=== PATIENT | female | born 1970 | race Two or more races ===

== ENCOUNTER 2018-06-29 09:00 | Day surgery (SDC) | payer OTHER ==
[2018-06-29 09:45] VITALS: BMI 31.1
[2018-06-29 10:29] VITALS: TEMP 98.5
[2018-06-29] MEDS ORDERED: ACETAMINOPHEN 500 MG TABLET (FP) ONE (10:54)
[2018-06-29 11:21] VITALS: BP 109/78; PULSE 74
--- NOTE | 2018-06-30 17:54 | PATH ---
Surgical Pathology Report Patient Name: ALAINA CUADRA [facility]. Rec. #: [id number] /Age/Gender: 1970 (Age: 47) / F Account: [id number] Location: U-ENDOSCOPY Taken: 06/29/2018 Received: 06/29/2018 Reported: 06/30/2018 Physicians: Jake Norris D.O. Specimen(s) Received BODY Clinical History Anemia Postoperative diagnosis: Gastritis Final Diagnosis STOMACH, BODY/ANGULARIS, BIOPSY: GASTRIC BODY MUCOSA WITH MILD CHRONIC GASTRITIS. IMMUNOHISTOCHEMICAL STAIN FOR H. PYLORI IS NEGATIVE. Electronically Signed Veena Mensah M.D. Gross Description Received in formalin, labeled "biopsy body/angularis" are 3 hughes, irregular portions of soft tissue ranging from 0.1-0.5 cm. in greatest dimension. The specimens are submitted in toto in one cassette. /06/29/2018 saudi06/29/2018
== END 2018-06-29 11:24 | disposition home or self-care (01) ==
LOC: JASU-ENDO 09:00
PROVIDERS: ATTEND Internal Medicine Gastroenterology
PROC: 0DB68ZX Excision of Stomach, Via Natural or Artificial Opening Endoscopic, Diagnostic (ICD-10-PCS; principal; 2018-06-29 09:45)
DX: D50.9 Iron deficiency anemia, unspecified (principal); K29.50 Unspecified chronic gastritis without bleeding; I10 Essential (primary) hypertension; K44.9 Diaphragmatic hernia without obstruction or gangrene
CPT/HCPCS: 84703; 88305-TC; 88342-TC

== ENCOUNTER 2018-07-13 10:43 | Day surgery (SDC) | payer OTHER ==
[2018-07-13 11:12] VITALS: BMI 32.5
[2018-07-13 12:22] VITALS: TEMP 97.5
[2018-07-13 13:22] VITALS: BP 132/79; PULSE 65
== END 2018-07-13 13:22 | disposition home or self-care (01) ==
LOC: JASU-ENDO 10:43
PROVIDERS: ATTEND Internal Medicine Gastroenterology
PROC: 0DJD8ZZ Inspection of Lower Intestinal Tract, Via Natural or Artificial Opening Endoscopic (ICD-10-PCS; principal; 2018-07-13 10:45)
DX: Z12.11 Encounter for screening for malignant neoplasm of colon (principal); K64.8 Other hemorrhoids; Z86.010 Personal history of colon polyps
CPT/HCPCS: 84703

== ENCOUNTER 2021-08-22 04:34 | Day surgery (SDC) | payer OTHER ==
[2021-08-21 14:17] VITALS: BMI 26.4
[2021-08-22 09:26] VITALS: TEMP 98
[2021-08-22 11:33] VITALS: PULSE 62
[2021-08-22 12:02] VITALS: BP 136/84
== END 2021-08-22 12:00 | disposition home or self-care (01) ==
LOC: JASU-ENDO 04:34
PROVIDERS: ATTEND Internal Medicine Gastroenterology
PROC: 0DB68ZX Excision of Stomach, Via Natural or Artificial Opening Endoscopic, Diagnostic (ICD-10-PCS; 2021-08-22)
PROC: 0DB28ZX Excision of Middle Esophagus, Via Natural or Artificial Opening Endoscopic, Diagnostic (ICD-10-PCS; 2021-08-22)
PROC: 0DB38ZX Excision of Lower Esophagus, Via Natural or Artificial Opening Endoscopic, Diagnostic (ICD-10-PCS; principal; 2021-08-22 10:00)
DX: K29.50 Unspecified chronic gastritis without bleeding (principal)
CPT/HCPCS: 81025; 88305-TC; 88342-TC

== ENCOUNTER 2021-09-19 13:50 | Emergency (ER) | payer OTHER ==
[2021-09-19 14:15] VITALS: BP 142/89; PULSE 73; TEMP 98.2; BMI 25.9
[2021-09-19] MEDS ORDERED: ACETAMINOPHEN 500 MG TABLET (FP) PO ONE (14:32)
[2021-09-19] MEDS ORDERED: ACETAMINOPHEN 500 MG TABLET (FP) ONE (14:41)
== END 2021-09-19 16:23 | disposition home or self-care (01) ==
LOC: FER 13:50
DX: S06.0X0A Concussion without loss of consciousness, initial encounter (principal)
CPT/HCPCS: 70450-TC; 99284-25

== ENCOUNTER 2023-06-25 04:22 | Day surgery (SDC) | payer OTHER ==
[2023-06-22 14:37] VITALS: BMI 28.3
[2023-06-25 08:39] VITALS: TEMP 97.3
[2023-06-25 09:10] VITALS: BP 108/58; PULSE 65; RESP 13
[2023-06-25 10:14] LABS: POTASSIUM 4.1 mmol/L (3.5-5.1)
[2023-06-25 10:18] LABS: ALBUMIN 4.4 g/dl (3.4-5.0); BLOOD UREA NITROGEN 9.5 mg/dL (7-18); CALCIUM 10.3 mg/dL (8.5-10.1)
[2023-06-25 10:21] LABS: CREATININE 0.8 mg/dL (0.55-1.3)
[2023-06-25 10:23] LABS: TOT PROT 8.9 g/dl (6.4-8.2)
== END 2023-06-25 09:25 | disposition home or self-care (01) ==
LOC: JASU-ENDO 04:22
PROVIDERS: ATTEND Internal Medicine Gastroenterology
PROC: 0DJD8ZZ Inspection of Lower Intestinal Tract, Via Natural or Artificial Opening Endoscopic (ICD-10-PCS; principal; 2023-06-25 08:00)
DX: Z12.11 Encounter for screening for malignant neoplasm of colon (principal); K64.8 Other hemorrhoids; K59.89 Other specified functional intestinal disorders; Z86.010 Personal history of colon polyps
CPT/HCPCS: 36415; 80053; 81025; 83690